=== PATIENT | male | born 1995 | race Two or more races ===

== ENCOUNTER 2017-06-15 14:21 | Emergency (ER) | payer BC ==
[~2017-06-15] VITALS: Ht 170.2 cm; Wt 64.0 kg
[2017-06-15 14:22] VITALS: BP 133/90
== END 2017-06-15 16:03 | disposition home or self-care (01) ==
LOC: ED 16:00
DX: S63.642A Sprain of metacarpophalangeal joint of left thumb, initial encounter (principal); W18.39XA Other fall on same level, initial encounter; Y93.89 Activity, other specified; Y92.098 Other place in other non-institutional residence as the place of occurrence of the external cause; Y99.8 Other external cause status
CPT/HCPCS: 29125; 99284